=== PATIENT | male | born 1960 | race Caucasian/White ===

== ENCOUNTER 2018-08-25 10:16 | Emergency (ER) | payer OTHER ==
[~2018-08-25] VITALS: Ht 175.3 cm; Wt 99.8 kg
[~2018-08-25 10:16] MED LIST: AMOXICILLIN875 MG PO; NORCO 5-325 TA1 EACH PO; PERCOCET 5-3251 EACH PO; ZOFRAN ODT4 MG PO; ZOLOFT
[2018-08-25 10:37] LABS: ABSOLUTE MONOCYTES 0.5 thou/uL (0.0-1.2); ABSOLUTE NEUTROPHILS 6.4 thou/uL (1.6-8.1); BASOPHILS 0.4 %; EOSINOPHILS 0.1 %; HEMATOCRIT 46.5 % (42.0-52.0); LYMPHOCYTES 12.9 %; MCH 30.9 pg (26.0-34.0); MCHC 34.4 g/dL (28.0-37.0); MCV 89.8 fL (80.0-100.0); MONOCYTES 6.2 %; MPV 7.7 fl. (7.2-11.1); NUCLEATED RBCS 0 /100WBC; PLATELET COUNT* 213 thou/uL (150-400); POLYS 80.4 %; RBC 5.18 mil/uL (4.50-6.00); RDW-CV 13.1 % (10.5-14.5)
[2018-08-25 10:43] LABS: ANION GAP 11 mmol/L (7-16); BUN 15 mg/dL (7-18); CHLORIDE 102 mmol/L (98-107); CO2 27 mmol/L (21-32); CREATININE 1.1 mg/dL (0.6-1.3); GLUCOSE 116 mg/dL (70-99); POTASSIUM 4.3 mmol/L (3.5-5.1); SODIUM 140 mmol/L (136-145)
[2018-08-25 10:53] LABS: ALBUMIN 4.5 g/dL (3.4-5.0); ALKALINE PHOSPHATASE 78 U/L (46-116); SGOT 26 U/L (15-37); SGPT 27 U/L (30-65); TOTAL PROTEIN 7.9 g/dL (6.4-8.2); TROPONIN-I LEVEL <0.06 ng/mL (<0.06)
[2018-08-25] MEDS ORDERED: ASPIR 8181 MG PO (12:02)
[2018-08-25 12:13] LABS: URINE BILIRUBIN NEGATIVE (Negative); URINE BLOOD NEGATIVE (Negative); URINE CLARITY CLEAR; URINE COLOR YELLOW; URINE GLUCOSE-RANDOM NEGATIVE (Negative); URINE KETONES 1+ (Negative); URINE LEUKOCYTES-REFLEX NEGATIVE (Negative); URINE NITRITE-REFLEX NEGATIVE (Negative); URINE PROTEIN TRACE (Negative); URINE UROBILINOGEN 0.2 E.U./dl (0.2-1.0)
[2018-08-25 12:19] VITALS: BP 166/84
--- NOTE | 2018-08-25 17:05 | EKG ---
[place] [address] ELECTROCARDIOGRAM REPORT Name: JOSÉ GUTIERREZ Room: [facility]#: [id number] Admission: 08/25/18 Attend Phys: Discharge: 08/25/18 Date of : 60 Report #: [id number] THIS REPORT FOR: //name// [facility] ED Test Date: 2018-08-25 Test Time: 10:19:45 Pat Name: JOSÉ GUTIERREZ Department: Room: Gender: M Staff Editor: Bridgette JARA : 1960 Requested By: Yaima Dougherty Order Number: [id number] Loly MD: Rowdy Gardner Measurements Intervals [place] Rate: 75 P: 63 WV: 162 QRS: -8 QRSD: 85 T: 32 QT: 345 QTc: 386 Interpretive Statements Sinus rhythm Possible left atrial enlargement No previous ECG available for comparison Electronically Signed On 08-25-2018 17:05:17 CDT by Rowdy Gardner [email or web address] <ELECTRONICALLY SIGNED> By: Rowdy Gardner MD, [facility] 08/25/18 1705 [id number] Rowdy Gardner MD, FACC /EPI
== END 2018-08-25 12:20 | disposition home or self-care (01) ==
LOC: M.ERS 10:16
PROVIDERS: Physician Assistant
DX: R07.89 Other chest pain (principal); I10 Essential (primary) hypertension; F32.9 Major depressive disorder, single episode, unspecified; Z87.442 Personal history of urinary calculi